=== PATIENT | male | born 1935 | race Caucasian/White ===

== ENCOUNTER 2016-12-04 08:17 | Emergency (ER) | payer OTHER, MEDICARE ==
[~2016-12-04] VITALS: Ht 160 cm; Wt 77.1 kg
[2016-12-04 08:17] VITALS: BP 156/73
[~2016-12-04 08:17] MED LIST: APAP650; ASPIRIN EC81 M1 PO; ATORVASTATIN CA80 MG; CO Q-1010 MG; COLACE100 MG; ENDUR-ACIN500 MG; FISH OIL 1,0001 EAC5; GEMFIBROZIL 60600 M1; LOPRESSOR100 MG; PRINIVIL10 MG; PROCTOSOL-HC28.35 GM RC; VITAMIN D31000 UNI2
[2016-12-04] MEDS ORDERED: LOPRESSOR100 M1 PO (09:11)
[2016-12-04] MEDS ORDERED: LISINOPRIL-HCT1 EAC2 PO (09:12)
[2016-12-04] MEDS ORDERED: ATORVASTATIN CA40 MG PO (09:13)
[2016-12-04] MEDS ORDERED: SINEMET 25-1001 EAC1 PO (09:14)
== END 2016-12-04 09:08 | disposition home or self-care (01) ==
LOC: ER 08:17
DX: S00.01XA Abrasion of scalp, initial encounter (principal); N40.0 Benign prostatic hyperplasia without lower urinary tract symptoms; Z88.0 Allergy status to penicillin; Z87.891 Personal history of nicotine dependence; W10.8XXA Fall (on) (from) other stairs and steps, initial encounter; Y93.89 Activity, other specified; Y92.89 Other specified places as the place of occurrence of the external cause; Y99.9 Unspecified external cause status

== ENCOUNTER 2017-05-21 08:40 | Inpatient (IN) | payer OTHER, MEDICARE ==
[~2017-05-21] VITALS: Ht 160 cm; Wt 79.4 kg
--- NOTE | ~2017-05-21 | EKG ---
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 : 1935 Requested By: Josiah Mojica Order Number: [id number] MD: Timothy Liang Measurements Intervals [place] Rate: 87 P: 131 IL: 200 QRS: 15 QRSD: 100 T: 183 QT: 392 QTc: 472 Interpretive Statements Sinus rhythm LVH with secondary repolarization abnormality Compared to ECG 10/02/2005 07:01:09 No significant change was found Electronically Signed On 05-22-2017 8:06:47 CDT by Timothy Liang [email or web address] <ELECTRONICALLY SIGNED> By: Timothy Liang MD, [facility] 05/22/17 0806 0 0 Timothy Liang MD, [facility] /EPI
--- NOTE | ~2017-05-21 | H ---
[facility] [place] [address] HISTORY AND PHYSICAL Name: PATRIC REYES Room #: 210-P ADM IN M.R.#: [id number] Admission: 05/21/17 Attend Phys: Jim Mendez DO Discharge: Date of : 31 Report #: [id number] THIS REPORT FOR: //name// CC: Jim Mendez DATE OF SERVICE: 05/21/2017 HISTORY OF PRESENT ILLNESS: This 81-year-old white male who was admitted to the Emergency Room for observation purposes after presenting to the ER because of weakness, tiredness, and he thought he was dehydrated. In the Emergency Room, he noticed that he had mild chest pain and his serum troponin was noted to bump a little bit. The Emergency Room physician felt this was significant enough to warrant observation status. The patient currently denies no chest pain. He denied recent fever, chills, sweats, respiratory complaints, exertional dyspnea or signs of infection, but for some reason he thought he might be dehydrated. PAST MEDICAL HISTORY: Parkinson's disease, chronic idiopathic peripheral neuropathy, hypertension, mixed hyperlipidemia, nephrolithiasis, TUR of the prostate for retention, mixed hyperlipidemia, degenerative arthritis, history of depression with some psychotic behavior on a transient basis, cataracts with lens implants in both eyes. MEDICATIONS ON ADMISSION: Aspirin 5 grains daily, Sinemet 25/100 one and one-half tablet t.i.d., Krill oil 1000 mg daily, lisinopril/HCTZ 20/25 one daily, atorvastatin 40 mg 3 times a week, Trilipix 135 mg daily, metoprolol tartrate 100 mg daily. ALLERGIES: PENICILLIN. SOCIAL HISTORY: He lives with his . 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 No longer drives. Did fall recently and says he is going to use a walker, but he only uses it in the house. He has been eating a lot of sweets. He has visiting nurses to arrange his medications. He has been taking a muscle relaxant for low back pain since he fell 2 weeks ago. PHYSICAL EXAMINATION: GENERAL: Slightly disheveled, but pleasant and oriented white male. VITAL SIGNS: BP 169/100, pulse 98, respirations 16, temperature afebrile. HEAD: No rash or trauma. EARS, NOSE AND THROAT: No lesions. EYES: No icterus. NECK: Supple, without bruits. LUNGS: Clear. Cough is dry. HEART: Rhythm regular without murmur or gallop. ABDOMEN: Soft and obese without mass or tenderness or guarding. EXTREMITIES: Legs, no edema. [facility] [address] [place] [address] HISTORY AND PHYSICAL Name: PATRIC REYES Room #: [address] [place] [address] IN M.R.#: [id number] Admission: 05/21/17 Attend Phys: Jim Mendez DO Discharge: Date of : 31 Report #: [id number] NEUROLOGIC: He is alert and oriented and up to date on current events. No sign of depression or psychosis at present. He is able to stand on his own, but his gait is slightly unsteady because of sensory deficit in his feet and Parkinson's disease. LABORATORY DATA: Troponin arley to 0.1. Cholesterol 170, LDL 101, HDL 32, triglycerides 188. Hemoglobin 15.4, white count 9000. Urinalysis essentially negative. Sodium 138, potassium 3.6, CO2 28, BUN 37, creatinine 1.4, blood sugar 149, calcium high at 10.7, magnesium 1.9. Liver enzymes normal. BNP slightly high at 1750. Thyroid normal. Echocardiogram shows normal LV function with mild diastolic dysfunction and no significant valvular disease. Chest x-ray shows no acute abnormality. EKG shows LVH with early repolarization. IMPRESSION: 1. Nonspecific chest pain and elevated serum troponin. 2. Hypertension. 3. Parkinson's disease. 4. Peripheral neuropathy. 5. Mixed hyperlipidemia. 6. Degenerative arthritis. 7. History of depression and intermittent psychosis. 8. History of nephrolithiasis. PLAN: Telemetry, add amlodipine for blood pressure control, Cardiology to see and has scheduled nuclear stress test, serial enzymes. PROGNOSIS: Guarded. <ELECTRONICALLY SIGNED> By: Jim Mendez DO 05/22/17 0744 190 24 Jim Mendez DO /nt
--- NOTE | ~2017-05-21 | D ---
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 HOSPITAL COURSE: Initial physical revealed a pleasant, soft spoken, white male in no distress, somewhat disheveled in appearance. VITAL SIGNS: BP initially 169/100. He was afebrile. NECK: Supple, without bruits. LUNGS: Clear. HEART: Negative. ABDOMEN: Soft, obese, nontender. EXTREMITIES: No edema. NEUROLOGIC: He was slightly unsteady on his feet. LABORATORY DATA: Serial enzymes showed a slight rise in troponin to 0.13. Hemoglobin 15.4, white count 9000. Cholesterol 170, LDL 101, HDL 32, triglycerides 188. Urinalysis negative. Sodium 138, potassium 3.6, BUN 37, creatinine 1.4, blood sugar 149, calcium is high at 10.7, magnesium 1.9. Liver enzymes normal. Thyroid normal. Echocardiogram showed normal LV function with mild diastolic dysfunction. The patient was seen in consult by Cardiology who recommended nuclear stress test, which was performed with findings of a fixed hypokinetic area in the anterior wall. LVEF was 30%-35%. Feeling was it was an old infarct without any new ischemia. The patient had no further chest pain here and stable vital signs. He was ambulatory. On 05/22/2017, he was discharged home. His final BUN was 30, creatinine 1.3, estimated GFR was 53, calcium down to 10.2. Blood sugar 123, sodium 138, potassium 3.6, CO2 27, hemoglobin 15. DISCHARGE MEDICATIONS: Low salt, low fat diet. Amlodipine 5 mg daily, docusate 100 mg daily, coenzyme Q mg daily, fish oil 1000 mg daily, aspirin 81 mg daily, gemfibrozil 600 mg daily, metoprolol tartrate 100 mg daily, lisinopril/HCTZ 20/25 one daily, atorvastatin 40 mg daily, carbidopa/levodopa 25/100 t.i.d. and vitamin D3 1000 units daily. He will see me in 1 week for followup exam. [address] [address] DISCHARGE SUMMARY Name: PATRIC REYES Room #: 210-P DIS IN M.R.#: [id number] Admission: 05/21/17 Attend Phys: Jim Mendez DO Discharge: 05/22/17 Date of : 31 Report #: [id number] FINAL DIAGNOSES: 1. Coronary artery disease with previous silent myocardial infarction and LV dysfunction. 2. Hypertension. 3. Parkinson's disease. 4. Peripheral neuropathy. 5. Mixed hyperlipidemia. 6. Lumbar degenerative disk disease. 7. History of depression. <ELECTRONICALLY SIGNED> By: Jim Mendez DO 05/26/17 0929 0809 0858 Jim Mendez DO /nt
--- NOTE | ~2017-05-21 | 2DMMODE ---
[facility] [address] [place] [address] 2 D/M-MODE ECHOCARDIOGRAM Name: AMYPATRIC Ana Luisa Room #: 210-P [facility] ..#: [id number] Admission: 05/21/17 Attend Phys: Rhiannon Newton Discharge: Date of : 31 Date of Service: 05/21/17 1619 Report #: [id number] THIS REPORT FOR: //name// APPROVED REPORT Study performed: 05/21/2017 14:51:56 EXAM: Comprehensive 2D, Doppler, and color-flow Echocardiogram Patient Location: Echo lab Room #: 210 Status: routine BSA: 1.83 HR: 84 bpm BP: 169/111 mmHg Rhythm: NSR Other Information Study Quality: Adequate/difficult due to body habitus. Indications Chest discomfort, elevated troponin, LVH. Hx: HTN, HLP 2D Dimensions RVDd: 35.74 mm LVEF(%): 74.77 (>50%) IVSd: 14.22 (7-11mm) LVOT Diam: 19.07 (18-24mm) LVDd: 40.53 mm PWd: 13.72 (7-11mm) Ascending Ao: 30.88 (22-36mm) LVDs: 23.05 (25-40mm) Aortic Root: 26.25 mm Herzog's LVEF: 74.77 % Volumes Left Atrial Volume (Systole) Single Plane 4CH: 50.64 mL Single Plane 2CH: 31.01 mL LA ESV Index: 23.00 mL/m2 Aortic Valve AoV Peak Richie.: 2.50 m/s AO Peak Gr.: 25.04 mmHg LVOT Max P.10 mmHg AO Mean Gr.: 12.42 mmHg AO V2 Mean: 1.63 m/s LVOT Max V: 1.88 m/s AO V2 VTI: 35.47 cm JULIANA Vmax: 2.14 cm2 [facility] [employer] [place] [address] 2 D/M-MODE ECHOCARDIOGRAM Name: REYESPATRIC Room #: 210-P [facility]#: [id number] Admission: 05/21/17 Attend Phys: Rhiannon Newton Discharge: Date of : 31 Date of Service: 05/21/17 1619 Report #: [id number] Mitral Valve E/A Ratio: 0.6 MV Decel. Time: 149.83 ms MV E Max Richie.: 0.60 m/s MV A Richie.: 0.98 m/s MV PHT: 43.45 ms IVRT: 69.20 ms Pulmonary Valve PV Peak Richie.: 1.16 m/s PV Peak Gr.: 5.42 mmHg Pulmonary Vein P Vein S: 0.58 m/s P Vein A: 0.28 m/s P Vein D: 0.42 m/s P Vein A Dur.: 124.6 msec P Vein S/D Ratio: 1.38 Tricuspid Valve TR Peak Richie.: 2.49 m/s RAP Estimate: 5.00 mmHg TR Peak Gr.: 24.82 mmHg PA Pressure: 30.00 mmHg Left Ventricle The left ventricle is normal size. Severe concentric left ventricular hypertrophy. Left ventricular systolic function is normal. Mild diastolic dysfunction is present (impaired relaxation pattern). Right Ventricle The right ventricle is normal size. The right ventricular systolic function is normal. Atria The left atrium size is normal. The right atrium size is normal. Aortic Valve Aortic valve is calcified. No aortic regurgitation is present. Mitral Valve The mitral valve is normal in structure. Mild mitral annular calcification. Trace mitral regurgitation. No evidence of mitral valve stenosis. Tricuspid Valve The tricuspid valve is normal in structure. Trace tricuspid [facility] [address] [place] [address] 2 D/M-MODE ECHOCARDIOGRAM Name: PATRIC REYES Room #: 210-P [facility]#: [id number] Admission: 05/21/17 Attend Phys: Rhiannon Newton Discharge: Date of : 31 Date of Service: 05/21/17 1619 Report #: [id number] regurgitation. Estimated PAP is 30mmHg. Pulmonic Valve Pulmonic valve is not well visualized. Trace pulmonic regurgitation. Great Vessels The aortic root is normal in size. The ascending aorta is normal in size. IVC is normal in size and collapses >50% with inspiration. Pericardium There is no pericardial effusion. <Conclusion> The left ventricle is normal size. Left ventricular systolic function is normal. The right ventricle is normal size. The left atrium size is normal. Aortic valve is calcified. No aortic regurgitation is present. The mitral valve is normal in structure. Mild mitral annular calcification. Trace mitral regurgitation. The tricuspid valve is normal in structure. Trace tricuspid regurgitation. Estimated PAP is 30mmHg. Pulmonic valve is not well visualized. Trace pulmonic regurgitation. <ELECTRONICALLY SIGNED> By: Fransisco Carreon MD 05/21/17 1619 1619 1619 Fransisco Carreon MD /INF
[~2017-05-21 08:40] MED LIST changes: +ATORVASTATIN CA40 MG PO; +LISINOPRIL-HCT1 EAC2 PO; +LOPRESSOR100 M1 PO; +SINEMET 25-1001 EAC1 PO
[2017-05-21 08:44] VITALS: BP 145/78
[2017-05-21 09:24] LABS: URINE BILIRUBIN NEGATIVE (Negative); URINE BLOOD NEGATIVE (Negative); URINE COLOR YELLOW; URINE GLUCOSE-RANDOM* TRACE (Negative); URINE KETONES NEGATIVE (Negative); URINE LEUKOCYTES-REFLEX NEGATIVE (Negative); URINE PROTEIN (DIPSTICK) NEGATIVE (Negative); URINE SPECIFIC GRAVITY 1.015 (1.003-1.035); URINE UROBILINOGEN 0.2 E.U./dl (0.2-1.0)
[2017-05-21 09:25] LABS: HEMATOCRIT 45.1 % (42.0-52.0); HEMOGLOBIN 15.4 gm/dL (14.0-18.0); MCH 29.3 pg (26.0-34.0); MCHC 34.1 g/dL (28.0-37.0); RBC 5.24 mil/uL (4.50-6.00); RDW 13.3 % (10.5-14.5); WBC 9.8 thou/uL (4.0-11.0)
[2017-05-21 09:37] LABS: CALCIUM 10.7 mg/dL (8.5-10.1); CREATININE 1.4 mg/dL (0.7-1.3); POTASSIUM 3.6 mmol/L (3.5-5.1)
[2017-05-21 09:45] LABS: ALBUMIN 4.1 g/dL (3.4-5.0); MAGNESIUM 1.9 mg/dL (1.8-2.4); TOTAL BILIRUBIN 0.5 mg/dL (<0.1-1.0); TOTAL PROTEIN 7.6 g/dL (6.4-8.2); TROPONIN-I 0.08 ng/mL (<0.04-0.07)
[2017-05-21 11:55] VITALS: BP 167/72
[2017-05-21 12:23] VITALS: BP 174/80
[2017-05-21 13:17] VITALS: BP 169/111
[2017-05-21 13:19] LABS: CHOLESTEROL 170 mg/dL (<200); HDL CHOLESTEROL 32 mg/dL (>40); LDL CHOLESTEROL 101 mg/dL (<100); TC:HDL 5.3 Ratio (Not establshd); TRIGLYCERIDE 188 mg/dL (<150); VLDL 38 mg/dL (<40)
[2017-05-21 20:35] VITALS: BP 182/82
[2017-05-22 00:12] VITALS: BP 138/78
[2017-05-22 04:22] LABS: ABSOLUTE NEUTROPHILS 5.9 thou/uL (1.4-8.2); BASOPHILS 0.4 % (0.0-2.0); EOSINOPHILS 2.3 % (0.0-3.0); HEMATOCRIT 43.1 % (42.0-52.0); LYMPHOCYTES 24.8 % (24.0-44.0); MCH 29.6 pg (26.0-34.0); MCHC 34.7 g/dL (28.0-37.0); MCV 85.5 fL (80.0-100.0); MONOCYTES 10.2 % (1.0-8.0); PLATELET COUNT 157 thou/uL (150-400); POLYS 62.3 % (36.0-66.0); RBC 5.05 mil/uL (4.50-6.00); RDW 13.5 % (10.5-14.5); WBC 9.5 thou/uL (4.0-11.0)
[2017-05-22 04:34] LABS: MANUAL DIFF NO
[2017-05-22 04:35] VITALS: BP 170/86
[2017-05-22 04:50] LABS: CALCIUM 10.2 mg/dL (8.5-10.1); CREATININE 1.3 mg/dL (0.7-1.3); POTASSIUM 3.6 mmol/L (3.5-5.1); TROPONIN-I 0.13 ng/mL (<0.04-0.07)
[2017-05-22 07:10] VITALS: BP 168/73
[2017-05-22] MEDS ORDERED: AMLODIPINE BESYL5 MG PO (08:02)
[2017-05-22 13:47] VITALS: BP 168/73
== END 2017-05-22 14:39 | disposition home or self-care (01) | DRG 303 ==
LOC: ER 08:40 → 2N 11:48 → EROBS 11:48 → 2N 12:45
PROVIDERS: Emergency Medicine; Internal Medicine; Nurse Practitioner Gerontology
DX: I25.10 Atherosclerotic heart disease of native coronary artery without angina pectoris (principal); N17.9 Acute kidney failure, unspecified; I13.0 Hypertensive heart and chronic kidney disease with heart failure and stage 1 through stage 4 chronic kidney disease, or unspecified chronic kidney disease; N40.0 Benign prostatic hyperplasia without lower urinary tract symptoms; I50.9 Heart failure, unspecified; G20 Parkinson's disease; G62.9 Polyneuropathy, unspecified; M51.36 Other intervertebral disc degeneration, lumbar region; E78.2 Mixed hyperlipidemia; F32.9 Major depressive disorder, single episode, unspecified; N18.3 Chronic kidney disease, stage 3 (moderate); Z98.42 Cataract extraction status, left eye; Z98.41 Cataract extraction status, right eye; Z79.82 Long term (current) use of aspirin; Z79.899 Other long term (current) drug therapy; Z87.442 Personal history of urinary calculi; Z88.0 Allergy status to penicillin; Z87.891 Personal history of nicotine dependence; I25.2 Old myocardial infarction
CPT/HCPCS: 10081

== ENCOUNTER 2017-08-11 06:29 | Emergency (ER) | payer OTHER, MEDICARE ==
[~2017-08-11] VITALS: Ht 160 cm; Wt 79.4 kg
--- NOTE | ~2017-08-11 | EKG ---
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: [facility] : 1935 Requested By: Doris Martinez Order Number: [id number] MD: Timothy Liang Measurements Intervals [place] Rate: 61 P: 33 [place]: 206 QRS: 17 QRSD: 101 T: 175 QT: 446 QTc: 450 Interpretive Statements Sinus rhythm LVH with secondary repolarization abnormality Compared to ECG 05/21/2017 09:31:54 No significant changes Electronically Signed On 08-11-2017 7:49:44 [employer]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
[~2017-08-11 06:29] MED LIST changes: +AMLODIPINE BESYL5 MG PO
[2017-08-11 07:20] LABS: ABSOLUTE NEUTROPHILS 5.7 thou/uL (1.4-8.2); BASOPHILS 0.7 % (0.0-2.0); EOSINOPHILS 2.5 % (0.0-3.0); HEMATOCRIT 44.2 % (42.0-52.0); HEMOGLOBIN 14.6 gm/dL (14.0-18.0); LYMPHOCYTES 24.1 % (24.0-44.0); MANUAL DIFF NO; MCH 28.5 pg (26.0-34.0); MCV 86.4 fL (80.0-100.0); PLATELET COUNT 176 thou/uL (150-400); POLYS 62.7 % (36.0-66.0); RBC 5.12 mil/uL (4.50-6.00); RDW 13.3 % (10.5-14.5)
[2017-08-11 07:23] LABS: CALCIUM 10.7 mg/dL (8.5-10.1); CREATININE 1.5 mg/dL (0.7-1.3); POTASSIUM 3.5 mmol/L (3.5-5.1)
[2017-08-11 07:32] LABS: TROPONIN-I 0.08 ng/mL (<0.06)
[2017-08-11 08:34] LABS: URINE BILIRUBIN NEGATIVE (Negative); URINE BLOOD NEGATIVE (Negative); URINE COLOR YELLOW; URINE GLUCOSE-RANDOM* NEGATIVE (Negative); URINE KETONES NEGATIVE (Negative); URINE LEUKOCYTES-REFLEX NEGATIVE (Negative); URINE PROTEIN (DIPSTICK) NEGATIVE (Negative); URINE UROBILINOGEN 0.2 E.U./dl (0.2-1.0)
[2017-08-11 10:04] VITALS: BP 118/60
== END 2017-08-11 10:18 | disposition home or self-care (01) ==
LOC: ER 06:29
PROVIDERS: Emergency Medicine
DX: R07.9 Chest pain, unspecified (principal); R79.89 Other specified abnormal findings of blood chemistry; Z87.891 Personal history of nicotine dependence